=== PATIENT | male | born 1975 | race Two or more races ===

== ENCOUNTER 2024-11-20 14:32 | Emergency (ER) | payer OTHER ==
[~2024-11-20] VITALS: Ht 175.3 cm; Wt 64.0 kg
--- NOTE | 2024-11-20 15:31 | DVH ---
CHEST RADIOGRAPH Indication: CHEST PAIN Technique: Single frontal view of the chest was obtained Comparison: None FINDINGS: Lines and Tubes: None Lungs: No focal consolidation. Pleura: No effusion. No pneumothorax. Cardiomediastinal contours: Unremarkable Bones: No acute osseous abnormality. IMPRESSION: No acute cardiopulmonary disease.
--- NOTE | 2024-11-20 15:43 | ED.PDOC ---
HPI Comments 49Y M with PMHx HLD presents to ED for chief complaint back pain x1day. Pt states the back pain radiates to left side of chest. Per pt, stretching alleviates the pain. Pt states he began to take Atorvastatin 2 days ago. Pt was initially seen at [place] but was referred to local ED due to being told that his oxygen saturation was low. Upon ED triage, SpO2 95% on RA. Chief Complaint: Chest Pain Time Seen by MD: 15:27 Reviewed Notes: Nurses Notes, Medications, Allergies Information Source: Patient Mode of Arrival: Ambulatory Severity: Mild Timing: Days Duration: Since onset Location: Chest (L) Radiation: Back Quality: Other Onset: At Rest Cardiac Risk Factors: Hyperlipidemia PE Risk Factors: None History of: None Modifying Factors: Other (stretching) Associated Signs and Symptoms: Back Pain Past Medical History PAST MEDICAL HISTORY: High Lipids Surgical History: Denies all surgeries Family History Family History: Unknown Social History Smoker: Cigarettes Alcohol: Denies ETOH Use Drugs: Denies Drug Use Lives In: Home Constitutional: denies: chills, diaphoresis, fatigue, fever, malaise, sweats, weakness, others EENTM: denies: blurred vision, double vision, ear bleeding, ear discharge, ear drainage, ear pain, ear ringing, eye pain, eye redness, hearing loss, mouth pain, mouth swelling, nasal discharge, nose bleeding, nose congestion, nose pain, photophobia, tearing, throat pain, throat swelling, voice changes, others Respiratory: denies: cough, hemoptysis, orthopnea, SOB at rest, shortness of breath, SOB with excertion, stridor, wheezing, others Cardiovascular: reports: chest pain; denies: dizzy spells, diaphoresis, Dyspnea on exertion, edema, irregular heart beat, left arm pain, lightheadedness, pal pitations, PND, syncope, others Gastrointestinal: denies: abdomen distended, abdominal pain, blood streaked bowels, constipated, diarrhea, dysphagia, difficulty swallowing, hematemesis, melena, nausea, poor appetite, poor fluid intake, rectal bleeding, rectal pain, vomiting, others Genitourinary: denies: burning, dysuria, flank pain, frequency, hematuria, incontinence, penile discharge, penile sore, pain, testicle pain, testicle swelling, urgency, others Neurological: reports: tingling (lt hand); denies: dizziness, fainting, headache, left sided numbness, left sided weakness, numbness, paresthesia, pre- existing deficit, right sided numbness, right sided weakness, seizure, speech problems, tremors, weakness, others Musculoskeletal: reports: back pain; denies: gout, joint pain, joint swelling, muscle pain, muscle stiffness, neck pain, others Integumetry: denies: bruises, change in color, change in hair/nails, dryness, laceration, lesions, lumps, rash, wounds, others Allergic/Immunocompromised: denies: Difficulty Healing, Frequent Infections, Hives, Itching, others Hematologic/Lymphatic: denies: anemia, blood clots, easy bleeding, easy bruising, swollen glands, others Endocrine: denies: excessive hunger, excessive sweating, excessive thirst, excessive urination, flushing, intolerance to cold, intolerance to heat, unexplained weight gain, unexplained weight loss, others Psychiatric: denies: anxiety, bipolar disorder, depression, hopeless, panic disorder, schizophrenia, sleepless, suicidal, others All Other Systems: Reviewed and Negative Physical Exam General Appearance: No Apparent Distress, Normal HEENT: Normal ENT Inspection, Pharynx Normal, TMs Normal Neck: Full Range of Motion, Non-Tender, Normal, Normal Inspection Respiratory: Chest Non-Tender, Lungs Clear, No Accessory Muscle Use, No Respiratory Distress, Normal Breath Sounds Cardiovascular: No Edema, No JVD, No Murmur, No Gallop, Normal Peripheral Pulses, Regular Rate/Rhythm Breast Exam: Deferred Gastrointestinal: No Organomegaly, Non Tender, No Pulsatile Mass, Normal Bowel Sounds, Soft Genitalia: Deferred Pelvic: Deferred Rectal: Deferred Extremities: No calf tenderness, Normal capillary refill, Normal inspection, Normal range of motion, Non-tender, No pedal edema Musculoskeletal : Extremity Location: Back Apperance: Tenderness 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 Was a procedure done?: No CP Differential Dx Differential Diagnosis: Other (see below) Differential Diagnosis: Angina, Aortic dissection, Chest Wall Pain, [place] lithiasis, Costochondritis, Myocardial Infarction, Pericarditis, Pneumonia, Pneumothorax, Pulmonary Embolus, Other (rhomboid pain) X-Ray, Labs, Meds, VS Vital Signs Date Time Temp Pulse Resp B/P (MAP) Pulse Ox O2 Delivery O2 Flow Rate FiO2 11/20/24 17:53 98.6 64 16 115/85 (95) 99 98.6 11/20/24 17:34 59 11/20/24 16:44 85 16 96 Room Air 11/20/24 16:44 98.6 85 16 129/30 (63) 96 98.6 11/20/24 16:32 59 11/20/24 15:42 65 11/20/24 15:35 98.0 78 20 121/78 (92) 95 Lab Test 11/20/24 16:33 11/20/24 15:44 Range/Units Troponin I High Sensitivity Pending < 3 L </=54 ng/L White Blood Count 9.4 4.4-10.8 10^3/uL Red Blood Count 5.30 4.5-5.90 10^6/uL Hemoglobin 17.0 13.5-17.5 g/dL Hematocrit 49.4 41.0-53.0 % Mean Corpuscular Volume 93.3 80.0-100.0 fL Mean Corpuscular Hemoglobin 32.0 28.0-32.0 pg Mean Corpuscular Hemoglobin Concent 34.3 32.0-36.0 g/dL Red Cell Distribution Width 13.7 11.8-14.3 % Platelet Count 225 140-450 10^3/uL Mean Platelet Volume 8.4 6.9-10.8 fL Neutrophils (%) (Auto) 73.2 37.0-80.0 % Lymphocytes (%) (Auto) 18.6 10.0-50.0 % Monocytes (%) (Auto) 7.3 0.0-12.0 % Eosinophils (%) (Auto) 0.4 0.0-7.0 % Basophils (%) (Auto) 0.5 0.0-2.0 % Neutrophils # (Auto) 6.9 1.6-8.6 10 ^3/uL Lymphocytes # (Auto) 1.7 0.4-5.4 10 ^3/uL Monocytes # (Auto) 0.7 0-1.3 10 ^3/uL Eosinophils # (Auto) 0 0-0.8 10 ^3/uL Basophils # (Auto) 0 0-0.2 10 ^3/uL Nucleated Red Blood Cells 0.0 % Sodium Level 140 136-145 mmol/L Potassium Level 3.8 3.5-5.1 mmol/L Chloride Level 105 98-107 mmol/L Carbon Dioxide Level 27 20-31 mmol/L Anion Gap 8 5-15 Blood Urea Nitrogen 12 9-23 mg/dL Creatinine 0.79 0.700-1.30 mg/dL Glomerular Filtration Rate Calc 108 >90 mL/min BUN/Creatinine Ratio 15.2 10.0-20.0 Serum Glucose 104 74-106 mg/dL Calcium Level 10.4 8.7-10.4 mg/dL Total Bilirubin 0.8 0.2-1.0 mg/dL Aspartate Amino Transferase (AST) 19 13-40 U/L Alanine Aminotransferase (ALT) 11 7-40 U/L Alkaline Phosphatase 92 46-116 U/L Total Protein 7.6 5.7-8.2 g/dL Albumin 4.8 3.2-4.8 g/dL [place] [id number] Ph: [phone] DIAGNOSTIC IMAGING Diagnostic Imaging Report : [id number] Signed PATIENT: ELLEN LEEACCT: [id number] UNIT: [id number] : 1975 LOC: ER ROOM / BED: / AGE / SEX: 49 / M ADM STATUS: REG ER SERVICE [id number] ORDERING PHYSICIAN: ALEJANDRA SMITH MD PROCEDURE(s): CXRP - CHEST PORTABLE REASON: CHEST PAIN ORDER NUMBER(s): [id number], ACCESSION NUMBER(s): [id number] CHEST RADIOGRAPH Indication: CHEST PAIN Technique: Single frontal view of the chest was obtained Comparison: None FINDINGS: Lines and Tubes: None Lungs: No focal consolidation. Pleura: No effusion. No pneumothorax. Cardiomediastinal contours: Unremarkable Bones: No acute osseous abnormality. IMPRESSION: No acute cardiopulmonary disease. ATED BY: ERICKA TINSLEY DO DICTATED DATE/TIME: 11/20/24 1528 SIGNED BY: ERICKA TINSLEY Carol Ann GRIJALVA SIGNED DATE/TIME: 11/20/24 1528 CC: Time of 1ST Reevaluation: 15:57 Reevaluation 1ST: Unchanged Time of 2ND Reevaluation: 17:30 Reevaluation 2ND: Unchanged Patient Education/Counseling: Diagnosis, Treatment Family Education/Counseling: No Family Present Additional Information I reviewed the following notes from patient's past medical encounters: None The following tests were ordered, and results were reviewed by me: EKG x3, CBC, CMP, UA, Troponin x3, CXR Additional Information was gathered from interviewing the following independent historians: None I reviewed and agreed with the following test results read by other providers: CXR I discussed treatment and results with medical personnel. pt still has same left rhomboid area pain. it appears to be muscular, but the radiation of the pain to the chest is of concerns. i will consult [place] to consider admitting him for further workup. i consulted to Dr Arce at [facility]. he will transfer pt to their facility #[id number] Departure 1 Departure Time of Disposition: 17:31 Impression: Primary Impression: Chest pain Qualified Codes: I20.0 - Unstable angina Additional Impression: Unstable angina Disposition: 02 SHORT TERM HOSPITAL Condition: Stable Critical Care Note Critical Care Time?: Yes (55 min-critical care time only) Critical care comment: Due to concerns for patients condition deteriorating, the care required my highest level of attention and readiness to intervene. I assessed the patient, reviewed the medical records, ordered the appropriate tests and treatments, then reassessed for results and responsiveness. I communicated with medical personnel and consultants and formulated a plan of care. Total critical care time excludes any procedures Stability Stability form required: Yes Heart Score Heart Score: Heart Score Response (Comments) Value History Slightly Suspicious 0 EKG Normal 0 Age 45-64 1 Risk Factors 1 or 2 risk factors 1 Troponin Normal limit 0 Total 2 I personally scribed for ALEJANDRA SMITH MD ([facility]) on 11/20/24 at 15:43. Electronically submitted by Jaye Spears ([employer]). I personally scribed for ALEJANDRA SMITH MD ([facility]) on 11/20/24 at 16:54. Electronically submitted by Jaye Spears ([employer]). ALEJANDRA SMITH MD Nov 20, 2024 15:43
[2024-11-20] MEDS: KETOROLAC TROMETH 30 MG/ML 1ML VIAL IM ONE (15:45)
[2024-11-20 16:09] LABS: Basophils # (auto) 0 10 ^3/uL (0-0.2); Basophils % (auto) 0.5 % (0.0-2.0); Eosinophils # (auto) 0 10 ^3/uL (0-0.8); Eosinophils % (auto) 0.4 % (0.0-7.0); Hematocrit 49.4 % (41.0-53.0); Lymphocytes # (auto) 1.7 10 ^3/uL (0.4-5.4); Lymphocytes % (auto) 18.6 % (10.0-50.0); Mean Corpuscular Hgb Conc. 34.3 g/dL (32.0-36.0); Mean Corpuscular Volume 93.3 fL (80.0-100.0); Monocytes # (auto) 0.7 10 ^3/uL (0-1.3); Monocytes % (auto) 7.3 % (0.0-12.0); Neutrophils # (auto) 6.9 10 ^3/uL (1.6-8.6); Neutrophils % (auto) 73.2 % (37.0-80.0); Platelet Count (auto) 225 10^3/uL (140-450); Red Cell Distribution Width 13.7 % (11.8-14.3); White Blood Cell 9.4 10^3/uL (4.4-10.8)
[2024-11-20 16:27] LABS: Alanine Aminotransferase 11 U/L (7-40); Alkaline Phosphatase 92 U/L (46-116); Anion Gap 8 (5-15); Aspartate Aminotransferase 19 U/L (13-40); BUN/Creatinine Ratio 15.2 (10.0-20.0); Bilirubin, Total 0.8 mg/dL (0.2-1.0); Blood Urea Nitrogen 12 mg/dL (9-23); Carbon Dioxide 27 mmol/L (20-31); Chloride 105 mmol/L (98-107); Glucose 104 mg/dL (74-106); Potassium 3.8 mmol/L (3.5-5.1); Sodium 140 mmol/L (136-145); Total Protein 7.6 g/dL (5.7-8.2)
[2024-11-20 16:28] LABS: Albumin 4.8 g/dL (3.2-4.8); Calcium 10.4 mg/dL (8.7-10.4)
[2024-11-20] MEDS: ASPirin 81 mg TAB PO ONE (18:00)
[2024-11-20 18:48] LABS: Urine Bacteria None Seen /hpf (None Seen)
[2024-11-20 19:06] LABS: Urine Blood Negative /uL (Negative); Urine Clarity Clear (Clear); Urine Color Light-Yellow (Yellow); Urine Mucus FEW (None Seen); Urine Protein, UAD Negative (Negative); Urine Specific Gravity 1.021 (1.001-1.035); Urine Squamous Epithelial Cell FEW /hpf (<5); Urine Urobilinogen Normal (Negative); Urine WBC 1 /hpf (0 - 3); Urine pH 5.5 (5.0-9.0)
[2024-11-21 04:00] VITALS: PULSE 82; RESP 16; O2SAT 96
[2024-11-21 06:14] VITALS: BP 115/73; PULSE 111; RESP 18; TEMP 98.3; O2SAT 98
--- NOTE | 2024-11-21 19:08 | ECG ---
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
--- NOTE | 2024-11-21 19:08 | ECG ---
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
== END 2024-11-21 06:30 | disposition short-term general hospital (02) ==
LOC: ER 14:32
DX: R07.89 Other chest pain (principal); M54.9 Dorsalgia, unspecified; I20.0 Unstable angina; E78.5 Hyperlipidemia, unspecified; F17.210 Nicotine dependence, cigarettes, uncomplicated; Z79.899 Other long term (current) drug therapy
CPT/HCPCS: 36415; 71045; 80053; 81001; 84484; 85025; 93005; J1885